=== PATIENT | female | born 1950 | race Caucasian/White ===

== ENCOUNTER 2024-04-25 11:35 | Emergency (ER) | payer MEDICARE, OTHER ==
[~2024-04-25] VITALS: Ht 160 cm; Wt 78.9 kg
[2024-04-25] MEDS: IV NS 0.9% 1,000 ML BAG IV ONE (12:00)
[2024-04-25 12:17] LABS: BASOPHILS % (AUTO) 0.5 % (0.0-2.0); EOSINOPHILS # (AUTO) 0.2 K/uL (0.0-0.7); EOSINOPHILS % (AUTO) 3.4 % (0.0-6.0); HEMATOCRIT 41 % (33-45); HEMOGLOBIN 13.3 g/dL (11.5-14.8); LYMPHOCYTES # (AUTO) 1.8 K/uL (0.8-4.8); LYMPHOCYTES % (AUTO) 31.7 % (20.0-44.0); MEAN CORPUSCULAR HEMOGLOBIN 29 PG (26.0-33.0); MEAN CORPUSCULAR HGB CONC 33 g/dl (31.0-36.0); MEAN CORPUSCULAR VOLUME 89 fL (82-100); MONOCYTES # (AUTO) 0.5 K/uL (0.1-1.30); MONOCYTES % (AUTO) 9.5 % (2.0-12.0); NEUTROPHILS # (AUTO) 3.1 K/uL (1.8-8.9); NEUTROPHILS % (AUTO) 54.9 % (43.0-81.0); PLATELET COUNT (AUTO) 260 K/uL (150-450); RED BLOOD CELL COUNT(AUTO) 4.57 MIL/uL (4.0-5.2); RED CELL DISTRIBUTION WIDTH 13.4 % (11.5-15.0); WHITE BLOOD COUNT (AUTO) 5.7 K/uL (4.3-11.0)
[2024-04-25 12:18] LABS: APPEARANCE,URINE Clear (CLEAR); BILIRUBIN,URINE Negative (NEGATIVE); BLOOD, URINE Negative Ery/uL (NEGATIVE); COLOR,URINE YELLOW (YELLOW); KETONES,URINE Negative (NEGATIVE); LEUKOCYTE ESTERASE ,URINE Negative (NEGATIVE); NITRITE, URINE Negative (NEGATIVE); PROTEIN,URINE Negative (NEGATIVE); UGLUCOSE Negative (NEGATIVE); UROBILINOGEN,URINE 0.2 EU/dL (0.2)
[2024-04-25 12:30] LABS: INR 0.99 (0.91-1.10); PARTIAL THROMBOPLASTIN TIME 23.4 SEC (24.3-34.3); PROTHROMBIN TIME 10.2 SECS (9.2-11.1)
[2024-04-25 12:32] LABS: CALCIUM, SERUM 8.7 mg/dL (8.5-10.1); CARBON DIOXIDE 26 mmol/L (21-32); CHLORIDE 106 mmol/L (98-107); CREATININE 0.8 mg/dL (0.6-1.3); GLUCOSE 137 mg/dL (74-106); POTASSIUM 3.7 mmol/L (3.5-5.1); SODIUM SERUM 140 mmol/L (136-145); UREA NITROGEN, BLOOD 18 mg/dL (7-18)
[2024-04-25 12:38] LABS: ALANINE AMINOTRANSFERASE 34 U/L (12-78); ALBUMIN 3.6 g/dL (3.4-5.0); ALKALINE PHOSPHATASE 59 U/L (46-116); ASPARTATE AMINOTRANSFERASE 16 U/L (15-37); BILIRUBIN,TOTAL 0.4 mg/dL (0.2-1.0); TOTAL PROTEIN, SERUM 6.9 g/dL (6.4-8.2)
[2024-04-25 12:49] LABS: BILIRUBIN,DIRECT 0.1 mg/dL (0.0-0.2)
[2024-04-25] MEDS ORDERED: DOCU100T2 PO (13:21)
[2024-04-25] MEDS ORDERED: ERGO500093 PO (13:21)
[2024-04-25] MEDS ORDERED: CYAN500T9 PO (13:21)
[2024-04-25] MEDS ORDERED: HYDR-3980 PO (13:21)
[2024-04-25] MEDS ORDERED: ICOS1CAP PO (13:21)
[2024-04-25] MEDS ORDERED: SIMV-46 PO (13:21)
[2024-04-25] MEDS ORDERED: VENL37.581 PO (13:21)
[2024-04-25] MEDS ORDERED: ALEN70TA80 PO (13:21)
[2024-04-25] MEDS ORDERED: FAMO-131 PO (13:32)
[2024-04-25 15:22] VITALS: BP 120/59; TEMP 98.3; O2SAT 97
== END 2024-04-25 14:30 | disposition home or self-care (01) ==
LOC: ER 11:40
DX: R42 Dizziness and giddiness (principal); R51.9 Headache, unspecified; R10.13 Epigastric pain; M19.90 Unspecified osteoarthritis, unspecified site
CPT/HCPCS: 99285; 96360; 70450; 71045; 93005; 85025; 80048; 80076; 81003; 36415; 84443; 84484; 85730; J7030

== ENCOUNTER 2024-10-30 11:42 | Emergency (ER) | payer MEDICARE, OTHER ==
[~2024-10-30] VITALS: Ht 167.6 cm; Wt 63.5 kg
[~2024-10-30 11:42] MED LIST: ALEN70TA80 PO; CYAN500T9 PO; DOCU100T2 PO; ERGO500093 PO; FAMO-131 PO; HYDR-3980 PO; ICOS1CAP PO; SIMV-46 PO; VENL37.581 PO
[2024-10-30] MEDS ORDERED: AMOX-430 PO (12:09)
[2024-10-30 12:26] VITALS: BP 127/64; TEMP 98.7; O2SAT 97
== END 2024-10-30 12:26 | disposition home or self-care (01) ==
LOC: ER 11:55
DX: R59.0 Localized enlarged lymph nodes (principal); M54.2 Cervicalgia; M19.90 Unspecified osteoarthritis, unspecified site; Z79.899 Other long term (current) drug therapy